=== PATIENT | female | born 1945 | race Hispanic/Latino ===

== ENCOUNTER → 2017-09-17 | Outpatient (CLI) | payer OTHER ==
[~2017-09-17] MED LIST: CLONAZEPAM; HYDR200T82 PO; LEVO50TA11 PO; MELO-106 PO; METO5TAB2 PO; OMEP40CA37 PO
== END | disposition home or self-care (01) ==
LOC: RAH 10:29
PROVIDERS: ATTEND Internal Medicine Gastroenterology
DX: K31.84 Gastroparesis (principal)
CPT/HCPCS: 78264; A9540; A9541

== ENCOUNTER 2018-01-07 07:16 | Day surgery (SDC) | payer OTHER ==
[~2018-01-07] VITALS: Ht 160 cm; Wt 41.1 kg
[~2018-01-07 07:16] MED LIST changes: +SODIUM CHLORIDE 0.9% 1000ML 1,000 ML IV ONE
[2018-01-07 08:10] VITALS: BP 126/63
[2018-01-07] MEDS ORDERED: PROPOFOL 10 MG/ML 20ML VIAL IV ONE (09:37)
[2018-01-07 10:04] VITALS: BP 89/31
[2018-01-07 10:29] VITALS: BP 114/69
== END 2018-01-07 10:40 ==
LOC: ENDO 07:16 → DAH 07:16 → ENDO 10:40
PROVIDERS: ATTEND Internal Medicine Gastroenterology
DX: Z12.11 Encounter for screening for malignant neoplasm of colon (principal); Q43.8 Other specified congenital malformations of intestine; K21.9 Gastro-esophageal reflux disease without esophagitis; E03.9 Hypothyroidism, unspecified; M06.9 Rheumatoid arthritis, unspecified; F32.9 Major depressive disorder, single episode, unspecified; Z79.899 Other long term (current) drug therapy
CPT/HCPCS: A4606; G0121; J2704; J7030